=== PATIENT | male | born 1995 | race Caucasian/White ===

== ENCOUNTER 2019-04-24 18:13 | Inpatient (IN) | payer BC ==
[2019-04-24] MEDS ORDERED: SODIUM CHLORIDE 0.9% 1,000 ML IV ONE (19:09)
[2019-04-24 19:47] LABS: Appearance,Urine Clear (Clear); Bilirubin,Urine Negative (Negative); Blood,Urine Negative (Negative); Color,Urine Light Yellow; Glucose,Urine (UA) Negative (Negative); Ketones,Urine Negative (Negative); Leukocyte Esterase,Urine Negative (Negative); Nitrite,Urine Negative (Negative); PH, Urine 7.5 (5.0-8.0); Protein,Urine Negative (Negative); Specific Gravity,Urine 1.006 (1.001-1.035); Urobilinogen,Urine <2.0 mg/dL (<2.0)
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
[2019-04-24 19:56] LABS: ALT 24 U/L (21-72); AST 22 U/L (17-59); African American GFR (CKD) >90 (>60 ml/min/1.73 sqM); Albumin 4.6 g/dL (3.5-5.0); Alkaline Phosphatase 63 U/L (38-126); Anion Gap 9 mmol/L; Blood Urea Nitrogen 14 mg/dL (9-20); Calcium 9.7 mg/dL (8.4-10.2); Carbon Dioxide 24 mmol/L (22-30); Chloride 107 mmol/L (98-107); Glucose 89 mg/dL (74-99); Sodium 140 mmol/L (137-145); Total Protein 7.3 g/dL (6.3-8.2)
[2019-04-24 19:58] LABS: Basophils % (A) 1 %; Eosinophils # (A) 0.2 k/uL (0-0.7); Eosinophils % (A) 3 %; HCT 42.5 % (39.0-53.0); HGB 14.8 gm/dL (13.0-17.5); Lymphocytes # (A) 1.8 k/uL (1.0-4.8); Lymphocytes % (A) 26 %; MCH 28.6 pg (25.0-35.0); MCHC 34.9 g/dL (31.0-37.0); MCV 82.1 fL (80.0-100.0); Mean Platelet Volume 7.1; Monocytes # (A) 0.5 k/uL (0-1.0); Monocytes % (A) 6 %; Neutrophils # (A) 4.3 k/uL (1.3-7.7); Neutrophils % (A) 61 %; Platelet Count 239 k/uL (150-450); RBC 5.17 m/uL (4.30-5.90); RDW 12.4 % (11.5-15.5); WBC 7.1 k/uL (3.8-10.6)
[2019-04-24 20:01] LABS: Amphetamine Screen,Urine Not Detected (NotDetected); Barbiturate Screen,Urine Not Detected (NotDetected); Benzodiazepines Screen,Urine Not Detected (NotDetected); Cocaine Screen,Urine Not Detected (NotDetected); Methadone Screen, Urine Not Detected (NotDetected); Opiate Screen,Urine Not Detected (NotDetected); Oxycodone Screen, Urine Not Detected (NotDetected); Phencyclidine Screen,Urine Not Detected (NotDetected); Tricyclic Antidepressant,Urine Not Detected (NotDetected); Urn Cannabinoid Scrn Not Detected (NotDetected)
--- NOTE | 2019-04-24 20:01 | CT ---
EXAMINATION TYPE: CT brain wo con DATE OF EXAM: 04/24/2019 COMPARISON: None HISTORY: AMS. Family reporting bizarre behavior, hasn't slept or eaten in 2 days. PT suffered traumat ic brain injury several years ago. Family states he has never had AMS CT DLP: 1123.4 mGycm. Automated Exposure Control for Dose Reduction was Utilized. TECHNIQUE: CT scan of the head is performed without contrast. FINDINGS: Ventricles have normal size. There is no mass effect nor midline shift. There is no sign of intracranial hemorrhage. The calvarium is intact. There is mild cerebral atrophy. IMPRESSION: There is mild cerebral atrophy for the patient's young age. No acute intracranial abnormality.
--- NOTE | 2019-04-24 20:02 | XR ---
EXAMINATION TYPE: XR chest 2V DATE OF EXAM: 04/24/2019 COMPARISON: NONE HISTORY: Altered mental status TECHNIQUE: Frontal and lateral views of the chest are obtained. FINDINGS: Heart and mediastinum are normal. Lungs are clear. Diaphragm is normal. Bony thorax appear s normal. IMPRESSION: Normal chest.
[2019-04-24] MEDS ORDERED: HALOPERIDOL 1 MG TAB PO STA (22:46)
[2019-04-24] MEDS ORDERED: LORazepam 1 MG TAB PO STA (22:46)
[2019-04-24] MEDS ORDERED: ACETAMINOPHEN TAB 325 MG TAB PO PRN (23:59)
[2019-04-24] MEDS ORDERED: MAG HYDROX/AL HYDROX/SIMETH 30 ML CUP PO PRN (23:59)
[2019-04-24] MEDS ORDERED: MAGNESIUM HYDROXIDE 2,400 MG/10 ML CUP PO PRN (23:59)
--- NOTE | 2019-04-25 11:43 | P.CONS ---
History of Present Illness - Reason for Consult Consult date: 04/25/19 - History of Present Illness The patient is a 23 yo M with a PMH of traumatic brain injury (5 years ago) and psychosis presented to the ED for flight of ideas and behaving strangely. The patient's family had brought him in. The patient was seen in the MHU. He noted feeling well though was continuing to have tangentiality and flight of ideas during the interview. He noted no other past medical history and denied any acti ve complaints. Denied chest pain, fever, chills, cough, nausea, vomiting, abdominal pain. Review of Systems Pertinent positives and negatives as discussed in HPI, a complete review of systems was performed and all other systems are negative. Past Medical History Additional Past Medical History / Comment(s): Traumatic brain injury. Trach. History of Any Multi-Drug Resistant Organisms: None Reported Past Surgical History: No Surgical Hx Reported Past Psychological History: Anxiety, Depression, PTSD Smoking Status: Current every day smoker Past Alcohol Use History: None Reported Past Drug Use History: None Reported Medications and Allergies Home Medications Medication Instructions Recorded Confirmed Type No Known Home Medications 04/24/19 04/24/19 History Allergies Allergy/AdvReac Type Severity Reaction Status Date / Time banana AdvReac Nausea & Verified 04/25/19 01:46 Vomiting grape AdvReac Nausea & Verified 04/25/19 01:46 Vomiting tomato AdvReac Nausea & Verified 04/25/19 01:46 Vomiting Physical Exam Vitals: Vital Signs Temp Pulse Pulse Resp BP BP Pulse Ox 04/25/19 00:03 97.4 F L 61 18 112/90 100 04/24/19 23:56 98.0 F 58 L 18 129/88 100 04/24/19 18:23 98.6 F 78 20 127/84 99 Intake and Output 04/24/19 04/25/19 04/25/19 22:59 06:59 14:59 Other: Weight 74.843 kg General: non toxic, no distress, appears at stated age, normal weight Derm: no unusual rashes/lesions no unusual ecchymoses, warm, dry Head: atraumatic, normocephalic, symmetric Eyes: EOMI, no lid lag, anicteric sclera, pupils equal round reactive to light ENT: Nose and ears atraumatic, no thrush, no pharyngeal erythema Neck: No thyromegaly, no cervical lymphadenopathy, trachea midline, supple Mouth: no lip lesion, mucus membranes moist Cardiovascular: S1S2 reg, no murmur, positive posterior tibial pulse bilateral, no edema, capillary refill less than 2 seconds Lungs: CTA bilateral, no rhonchi, no rales , no accessory muscle use Abdominal: soft, nontender to palpation, no guarding, no appreciable organomegaly, normal bowel sounds Ext: no gross muscle atrophy, muscle strength 5 out of 5 in all 4 extremities grossly, no contractures, Neuro: CN II-XI grossly intact, light touch intact all 4 extremities, finger to nose within normal limits, Psych: Alert, oriented, flat of ideas, disorganized thought process Results CBC & Chem 7: 04/24/19 19:34 04/24/19 19:34 Assessment and Plan Plan: Psychosis -as per psychiatry Tobacco abuse -Nicotine patch prn Thank you for allowing us to participate in the care of this patient. We will follow peripherally. Do not hesitate to contact us with questions. Someone can be reached from the [facility] hospitalist group at all hours of the day at [phone].
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
[2019-04-25] MEDS ORDERED: ZIPRASIDONE 20 MG VIAL IM ONE (19:55)
[2019-04-25] MEDS ORDERED: WATER FOR INJECTION, STERILE 0 ML IV ONE (19:55)
[2019-04-25] MEDS: LORazepam 1 MG TAB PO PRN (20:01)
[2019-04-25] MEDS: HALOPERIDOL 1 MG TAB PO PRN (20:11)
[2019-04-25] MEDS: PALIPERIDONE 3 MG TAB.ER.24 PO SCH ×2 (20:12→20:46)
[2019-04-25] MEDS: HALOPERIDOL LACTATE 5 MG/ML 1 ML VIAL IM PRN (20:53)
[2019-04-25] MEDS: LORazepam 2 MG/ML INJ IM PRN (20:53)
[2019-04-26 09:46] LABS: ALT 26 U/L (21-72); AST 23 U/L (17-59); African American GFR (CKD) >90 (>60 ml/min/1.73 sqM); Albumin 4.5 g/dL (3.5-5.0); Alkaline Phosphatase 61 U/L (38-126); Anion Gap 11 mmol/L; Bilirubin, Delta 0.1 mg/dL (0.0-0.2); Bilirubin,Unconjugated 1.1 mg/dL (0.0-1.1); Blood Urea Nitrogen 17 mg/dL (9-20); Calcium 9.7 mg/dL (8.4-10.2); Carbon Dioxide 23 mmol/L (22-30); Chloride 108 mmol/L (98-107); Cholesterol 94 mg/dL (<200); Glucose 89 mg/dL (74-99); HDL Cholesterol 43 mg/dL (40-60); LDL Cholesterol,Calculated 43 mg/dL (0-99); Potassium 4.5 mmol/L (3.5-5.1); Sodium 142 mmol/L (137-145); Total Bilirubin 1.2 mg/dL (0.2-1.3); Total Protein 7.3 g/dL (6.3-8.2); Triglycerides 41 mg/dL (<150)
[2019-04-26] MEDS: NICOTINE 14MG/24HR PATCH TRANSDERM SCH (09:46)
--- NOTE | 2019-04-26 13:38 | P.PN ---
Progress Note - Text Progress Note Date: 04/26/19 Interval history: Patient is seen in cross coverage today. He reports that he didn't take the Invega last night, he did receive an injection of medicine. He does describe that he feels something is missing. Describes that his thoughts could be clear. He also describes having some violent mood swings. Mental status exam: He is alert and cooperative with the interview. He is not showing any agitation. His thought processes seem to be showing some disorganization. He describes that his thoughts could be clearer. He denies any hallucinations. He does not verbalize any thoughts of harm to self or others. Regarding mood he describes some violent mood swings. Plan: Patient is encouraged regarding initiating the intake as prescribed. We will monitor his medication compliance. We will monitor for any medication side effects and his ongoing response to treatment.
[2019-04-26] MEDS: LORazepam 1 MG TAB PO PRN (13:44)
[2019-04-26] MEDS: HALOPERIDOL 1 MG TAB PO PRN (14:27)
[2019-04-26 18:46] LABS: Folate, Serum 19.6 ng/mL
[2019-04-26 20:27] LABS: Hemoglobin A1C 4.9 % (4.0-6.0)
[2019-04-26] MEDS: PALIPERIDONE 3 MG TAB.ER.24 PO SCH (21:05)
[2019-04-26] MEDS: HALOPERIDOL LACTATE 5 MG/ML 1 ML VIAL IM PRN (22:00)
[2019-04-26] MEDS: LORazepam 2 MG/ML INJ IM PRN (22:00)
[2019-04-27] MEDS: NICOTINE 14MG/24HR PATCH TRANSDERM SCH (09:12)
[2019-04-27] MEDS: LORazepam 1 MG TAB PO PRN (11:05)
[2019-04-27] MEDS: HALOPERIDOL 1 MG TAB PO PRN (11:05)
--- NOTE | 2019-04-27 12:54 | P.PN ---
Progress Note - Text Progress Note Date: 04/27/19 Interval history: Patient seen in [facility] again today. He states he did take the invega last night. He seems to relay that he didn't sleep well last night then does talk about hearing some voices in his sleep. He does not seem to verbalize any adverse psychotropic medication side effects. He describes feeling full and makes reference to having eaten. Mental status exam: He is alert and cooperative overall. He does not show any agitation. He seems to deny any current him auditory hallucinations. He does not verbalize any thoughts of harm to self or others. He does have some disorganization in his thoughts. Affect is restricted Plan: Patient will be maintained on current psychotropic medication. Continue to monitor for any side effects, continuing to encourage medication compliance and monitor his ongoing response to treatment.
[2019-04-27] MEDS: PALIPERIDONE 3 MG TAB.ER.24 PO SCH (21:12)
[2019-04-27] MEDS: HALOPERIDOL LACTATE 5 MG/ML 1 ML VIAL IM PRN (21:31)
[2019-04-27] MEDS: LORazepam 2 MG/ML INJ IM PRN (21:31)
[2019-04-28] MEDS: LORazepam 2 MG/ML INJ IM PRN (04:54)
[2019-04-28] MEDS: HALOPERIDOL LACTATE 5 MG/ML 1 ML VIAL IM PRN (04:54)
[2019-04-28] MEDS: NICOTINE 14MG/24HR PATCH TRANSDERM SCH (09:21)
[2019-04-28] MEDS ORDERED: HALOPERIDOL 5 MG TAB PO PRN (11:15)
[2019-04-28] MEDS ORDERED: HALOPERIDOL LACTATE 5 MG/ML 1 ML VIAL IM PRN (11:15)
[2019-04-28] MEDS ORDERED: LORazepam 1 MG TAB PO PRN (11:18)
[2019-04-28] MEDS ORDERED: LORazepam 2 MG/ML INJ IM PRN (11:18)
--- NOTE | 2019-04-28 11:24 | P.PN ---
Progress Note - Text Progress Note Date: 04/28/19 Interval History: Patient was seen at the nurse's desk and was agreeable to speak to press writer in the office. Patient was difficult to redirect at times and appeared to have poor hygiene and grooming. Patient continues to be bizarre and was tangential and having loose associations in his thought content/process. Patient continues to have poor insight and judgment and asked about when he can leave the hospital. He states his mood is "okay" and denies any depressive symptoms at this time. He stated that he had a good night last night however patient did receive PRN IM medications for bizarre behavior and hitting doors according to staff. Patient admitted a fair energy and denied going to groups. Patient continues to have thought blocking. At this time patient denies any suicidal or homical ideations, intent or plan. Patient denies any auditory, visual hallucinations. Continues to have multiple loosely formed delusions. Patient denies any side effects from the medications and has been compliant with meds. Mental Status Exam: General Appearance: Patient appears to be stated age is alert, and attempts to cooperate. Patient continues to have a bizarre appearance and appears to be confused. Poor hygiene and poor grooming. Behavior: Patient is calmly seated without any agitated behavior. Speech: Patient's speech is fluent and nonpressured. Soft tone Mood/Affect: Patient reports their mood is "okay", affect is congruent and blunted Suicidality/Homicidality: Patient denies having any suicidal or homicidal ideation intent or plan. Perceptions: Patient admits to having auditory hallucinations denies any visual hallucinations. Though content/process: Multiple loosely formed delusions. Does not endorse any paranoia at this time. Patient is illogical and tangential with loose associations. Memory and concentration: AOX3, grossly intact for the purposes of this session. Judgment and insight: poor Assessment Psychosis unspecified History of traumatic brain injury Nicotine dependence Plan: -Patient continues to meet criteria for inpatient psychiatric admission for symptom stabilization and safety. Patient has signed adult voluntary form and medication consent and was placed in patient's chart. -Medications: Will increase Invega to 6 mg nightly for psychosis. Plan to titrate up as needed and evaluate need for possible long-acting injection. -When necessary Haldol and Ativan for agitation/aggression. -NRT - nicotine patch -SW on board for discharge planning.
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
[2019-04-28] MEDS ORDERED: BENZTROPINE 2 MG/2 ML AMP IM STA (20:51)
[2019-04-28] MEDS ORDERED: PALIPERIDONE 6 MG TAB.ER.24 PO SCH (21:00)
[2019-04-29] MEDS: NICOTINE POLACRILEX 2 MG GUM BUCCAL PRN ×4 (05:49→18:43)
[2019-04-29] MEDS: PALIPERIDONE 3 MG TAB.ER.24 PO SCH ×2 (10:06→21:11)
--- NOTE | 2019-04-29 10:32 | P.PN ---
Progress Note - Text Progress Note Date: 04/29/19 Interval History: Patient was seen at the nurse's desk and was agreeable to speak to chart writer in the office. Patient appeared slightly more lucid/less confused today and was attempting to answer questions appropriately however patient's answers were tangential and sometimes illogical. Patient appeared to have mildly improved hygiene and grooming. Patient continues to be bizarre and was tangential and having loose associations in his thought content/process. Patient continues to have poor insight/judgment. He states his mood is "alright" and denies any depressive symptoms at this time. When asked about his medications and patient Referring to His Nicorette Gum and Talking about the Minty Taste to It. However patient was directable and agreeable to continue taking the medication. When patient was asked abotu his night last night, he did not recall what happened and claims that he didnt sleep. Patient admitted a fair energy and denied going to groups. Patient continues to have thought blocking. At this time patient denies any suicidal or homical ideations, intent or plan. Patient denies any auditory, visual hallucinations. Continues to have multiple loosely formed delusions. Patient denies any side effects from the medications and has been compliant with meds. As per notes overnight, patient received 2 mg of IM Cogentin for what was reported as "slurred speech and confusion" and patient improved after that. Invega was held last night. Mental Status Exam: General Appearance: Patient appears to be stated age is alert, and attempts to cooperate. Patient continues to have a bizarre appearance. improved hygiene and grooming. Behavior: Patient is calmly seated without any agitated behavior. Speech: Patient's speech is fluent and nonpressured. Soft tone Mood/Affect: Patient reports their mood is "okay", affect is congruent and blunted Suicidality/Homicidality: Patient denies having any suicidal or homicidal ideation intent or plan. Perceptions: Patient admits to having auditory hallucinations denies any visual hallucinations. Though content/process: Multiple loosely formed delusions. Does not endorse any paranoia at this time. Patient is illogical and tangential with loose associations, improving mildly. Memory and concentration: AOX3, grossly intact for the purposes of this session. Judgment and insight: poor Assessment Psychosis unspecified History of traumatic brain injury Nicotine dependence Plan: -Patient continues to meet criteria for inpatient psychiatric admission for symptom stabilization and safety. Patient has signed adult voluntary form and medication consent and was placed in patient's chart. -Medications: Will switch Invega to 3 mg BID for psychosis. Plan to titrate up as needed and evaluate need for possible long-acting injection. May need to switch to Haldol liquid -EEG scheduled for today for patient's ongoing confusion. Will order CPK to rule out possible neuroleptic malignant syndrome as patient appeared to be "stiff" yesterday by staff. -Will attempt to call patient's mother today Malorie at [phone] for additional collateral. -Brain CT scan done prior to admission on 04/24/2019 showed mild cerebral atrophy with no acute changes. -UDS on admission was negative. -When necessary Haldol and Ativan for agitation/aggression. -NRT - nicotine patch -SW on board for discharge planning.
--- NOTE | 2019-04-29 22:58 | EEG ---
ELECTROENCEPHALOGRAM REPORT DATE OF SERVICE: 04/29/2019. ELECTROENCEPHALOGRAM (EEG) REPORT: TECHNIQUE: A routine 18 channel EEG was performed with video using the 10/20 international electrode placement system. HISTORY: Traumatic brain injury 5 years ago. Other medical history includes psychosis in the last few days. CURRENT MEDICATIONS: Invega, Ativan, Haldol and Maalox. STUDY DURATION: 24 minutes. FINDINGS: BACKGROUND: The background activity consists of 9-10 hertz rhythmic waveforms symmetric through both posterior quadrants. ACTIVATION: Hyperventilation: Not performed. Photic stimulation: Symmetric driving seen. Sleep: Stages I and II sleep noted. ABNORMALITIES: None. IMPRESSION: Normal EEG. No epileptiform activity was present. No seizures were recorded. MMODL / IJN: [id number] /
[2019-04-30] MEDS: PALIPERIDONE 3 MG TAB.ER.24 PO SCH ×2 (08:58→21:24)
[2019-04-30] MEDS: NICOTINE POLACRILEX 2 MG GUM BUCCAL PRN ×4 (09:00→21:25)
--- NOTE | 2019-04-30 12:37 | P.PN ---
Progress Note - Text Progress Note Date: 04/30/19 Interval History: Patient was seen taking part in group and was agreeable to speak to sql report writer in the office. Patient appeared to be more directable and cooperative today. Patient appeared more lucid/less confused today and answered questions more appropriately. Patient continues to be tangential/circumstantial in his thought process. Patient appeared to have mildly improved hygiene and grooming. He spoke about the woman that he was trying to meet online and how their relationship started on "[employer]". He states that they were texting thing back and forth and he decided to end it momentarily however had second thoughts of wanting to make it work but claims that the relationship did not go forward. Patient claims that his mother does not know him well although he does trust her. Patient continues to have superficial insight into his medications however was directable and agreeable to continue taking the Invega. Patient stated that in the future and she does not want to take any medications. states his mood is "alright" and denies any depressive symptoms at this time. Patient stated that he slept better last night. Patient admitted a fair energy and denied going to groups. At this time patient denies any suicidal or homical ideations, intent or plan. Patient denies any auditory, visual hallucinations. Patient denies any side effects from the medications and has been compliant with meds. Mental Status Exam: General Appearance: Patient appears to be stated age is alert, and attempts to cooperate. Less bizarre and more directable today. Improved hygiene and grooming. Behavior: Patient is calmly seated without any agitated behavior. Speech: Patient's speech is fluent and nonpressured. Soft tone Mood/Affect: Patient reports their mood is "fine", affect is congruent Suicidality/Homicidality: Patient denies having any suicidal or homicidal ideat ion intent or plan. Perceptions: Patient admits to having auditory hallucinations denies any visual hallucinations. Though content/process: Tangential/circumstantial however is improving mildly. Patient is more logical today. Memory and concentration: AOX3, grossly intact for the purposes of this session. Judgment and insight: poor, improving mildly Assessment Psychosis unspecified History of traumatic brain injury Nicotine dependence Plan: -Patient continues to meet criteria for inpatient psychiatric admission for symptom stabilization and safety. Patient has signed adult voluntary form and medication consent and was placed in patient's chart. -Medications: Will continue with Invega to 3 mg BID for psychosis. Plan to titrate up as needed. -EEG performed on 04/29/2019 which proved to be a normal study with no epileptiform changes or seizures noted. CPK was noted to be elevated, vital signs are stable and patient is less confused at this time. We'll continue to monitor. -Brain CT scan done prior to admission on 04/24/2019 showed mild cerebral atrophy with no acute changes. -UDS on admission was negative. Patient adamantly denies using any recreational drugs -When necessary Haldol and Ativan for agitation/aggression. -NRT - nicotine patch -SW on board for discharge planning. patch worker to ask mother to visit patient today. Possible discharge in 1-2 days.
[2019-05-01] MEDS: NICOTINE POLACRILEX 2 MG GUM BUCCAL PRN ×4 (09:14→19:35)
[2019-05-01] MEDS: PALIPERIDONE 3 MG TAB.ER.24 PO SCH ×2 (09:14→20:16)
[2019-05-01 09:25] VITALS: BMI 23.6
--- NOTE | 2019-05-01 09:34 | P.PN ---
Progress Note - Text Progress Note Date: 05/01/19 Interval History: Patient was seen this morning after taking his medications and was agreeable to speak to promotion writer in the office. Patient appeared to be more directable and cooperative today however continues to have a constricted affect. Patient appeared more lucid and less confused today and answered questions appropriately. Patient continues to be tangential/circumstantial in his thought process. Patient spoke about feeling much better today and spoke about seeing his parents yesterday during the meeting/visitation and states that it went well. Patient spoke about his mother wanting him to be on the long-acting injection however patient is still undecided at this time whether he wants it or not. Patient claims that he has been going to groups and attending to participate as best as he can. He states his mood is "alright" and denies any depressive symptoms at this time. Patient stated that he slept better last night. Patient admitted a fair energy. At this time patient denies any suicidal or homical ideations, intent or plan. Patient denies any auditory, visual hallucinations. Patient denies any side effects from the medications and has been compliant with meds. Mental Status Exam: General Appearance: Patient appears to be stated age is alert, and attempts to c ooperate. More directable today. Improved hygiene and grooming. Behavior: Patient is calmly seated without any agitated behavior. Speech: Patient's speech is fluent and nonpressured. Soft tone Mood/Affect: Patient reports their mood is "ok", affect is congruent Suicidality/Homicidality: Patient denies having any suicidal or homicidal ideation intent or plan. Perceptions: Patient admits to having auditory hallucinations denies any visual hallucinations. Though content/process: Tangential/circumstantial however is improving mildly. Patient is more logical today. Memory and concentration: AOX3, grossly intact for the purposes of this session. Judgment and insight: Fair, improving mildly Assessment Psychosis unspecified History of traumatic brain injury Nicotine dependence Plan: -Patient continues to meet criteria for inpatient psychiatric admission for symptom stabilization and safety. Patient has signed adult voluntary form and medication consent and was placed in patient's chart. -Medications: Will continue with Invega to 3 mg BID for psychosis. Will encourage patient to be placed on long-acting injection to ensure compliance. -EEG performed on 04/29/2019 which proved to be a normal study with no epileptiform changes or seizures noted. CPK was noted to be elevated, vital signs are stable and patient is less confused at this time. We'll continue to monitor. -Brain CT scan prior to admission on 04/24/2019 showed mild cerebral atrophy with no acute changes. -UDS on admission was negative. Patient adamantly denies using any recreational drugs -When necessary Haldol and Ativan for agitation/aggression. -NRT - nicotine patch -SW on board for discharge planning. We'll speak with mother today about patient's visitation yesterday and plans for discharge and long-acting medication option.
[2019-05-02 06:42] VITALS: BP 97/50; PULSE 61; RESP 14; TEMP 97.7
[2019-05-02] MEDS: PALIPERIDONE 3 MG TAB.ER.24 PO SCH (09:14)
--- NOTE | 2019-05-02 09:42 | P.DS ---
Providers Date of admission: 04/24/19 22:54 Expected date of discharge: 05/02/19 Attending physician: Bigg Polanco MD Consults: 04/24/19 23:59 Consult Physician Routine Consulting Provider: Osiel Rouse Consult Reason/Comments: H & P and medical care Do you want consulting provider notified?: Yes 04/25/19 12:47 Consult Physician Routine Consulting Provider: Shanti Chance Consult Reason/Comments: ? seizure Do you want consulting provider notified?: Yes Primary care physician: Stated None - Discharge Diagnosis(es) (1) Brief psychotic disorder Current Visit: Yes Status: Acute Priority: High (2) History of traumatic brain injury Current Visit: Yes Status: Acute Priority: Medium (3) Nicotine dependence Current Visit: Yes Status: Acute Priority: Low Hospital Course: Admission HPI: Patient is a 23-year-old male who has a history of psychotic disorder and traumatic brain injury is currently single lives alone in an apartment and works full-time at a factory. Patient presented to the hospital on petition by his mother who claim the patient was having racing thoughts, rapid speech, and not taking care of himself including eating and not sleeping. Mother also commented that patient was religiously preoccupied. As per ER note claims that patient is not on any medications and behavioral changes have been ongoing for approximately 3 days now. Patient was agreeable to be seen by telegraphic typewriter installer in the office and was noted to be tangential, illogical with loose associations. Patient was also noted attending to be responding to internal stimuli looking around the room. When patient was asked about why he is in the hospital, patient had very poor insight and stated that she was working in his factory and began speaking about the details of the machines and different cars and went off on a tangent. Patient was difficult to redirect in conversation and was inappropriate with his answers. Patient did state that his tire service supervisor sent him home as he was "acting crazy" and patient responded by saying that she was doing to get a job at work didn't understand why he was sent home. Patient spoke about many different topics including wanting to work for the hospital and stating that he did not want to be in the hospital. Patient also spoke about someone who she met on [employer] and how he "went to be together". Patient was also religiously preoccupied during conversation. Patient claimed that he does hear auditory hallucinations and described him as "soft voice through snapchat". Patient denied any visual hallucinations at this time. Patient admitted to having poor sleep stating that he stayed up all night reading the book of bear bauer in the Bible. Patient does not endorse any paranoia at this time has multiple loosely formed delusions and denies any depressive symptoms at this time. Patient denies any suicidal or homicidal ideations intent or plan. Patient admits to using cigarettes daily and denies any other illicit drug use. Patient's UDS on admission was negative. Hospital course: Upon admission to the unit patient was initially psychotic and bizarre and responding to internal stimuli. Patient was however directable and agreeable to commence treatment. Patient was initially aggressive at times and disorganiz ed/bizarre and required PRN IM medications for agitation. Patient was compliant with the medications throughout hospital course and gradually improved. Patient did have one episode where he had slurring of speech and acute confusion and muscle tightness and patient was given IM Cogentin which improved his symptoms. Patient was started on Invega and titrated up to a dose of 6 mg daily for psychosis. Patient was offered the long-acting injection of Invega Sustenna however patient declined. Patient spoke of his stressors and engaged in therapy both group and individual. Patient was also seen by medical team for history and physical exam. Patient had a head CT scan done on admission which showed mild cerebral atrophy for patient's age. Patient also received an EEG which showed no epileptiform changes or seizures. Patient's UDS was negative on admission and patient denied using any other hallucinogens or recreational drugs. Patient had creatinine kinase drawn to rule out NMS and level was 1055. Patient had a negative Treponema pallidum test. Neurological consultation was requested to rule out possible seizure. Throughout the course of the hospitalization patient gradually improved with regards to psychosis/behaviors, mood, sleep and became future oriented with improved insight and judgment. On the day of discharge patient denied any suicidal or homicidal ideations intent or plan denied any auditory or visual hallucinations. Patient endorsed wanting to live for his health and his independence. The patient denied any access to guns or weapons. Patient denied any paranoia and did not endorse any delusions. Patient does not have a significant history of substance abuse however was counseled on abstaining from all substances including alcohol and marijuana. Patient was also counseled on the medications and need for regular compliance and was encouraged to follow-up with their outpatient appointment for mental health and also for primary care. Prior to discharge a family meeting will be arranged by social worker clinical to answer any questions and ensure safety upon discharge. Mental status exam: General Appearance: Patient appears to be stated age is alert, pleasant, and cooperative. Patient is in no acute distress and has fair hygiene and grooming Behavior: Patient is calmly seated without any agitated behavior. Speech: Patient's speech is fluent and nonpressured. Mood/Affect: Patient reports their mood is "better", affect is congruent and constricted Suicidality/Homicidality: Patient denies having any suicidal or homicidal ideation intent or plan. Perceptions: Patient denies any auditory or visual hallucinations. Though content/process: There is no evidence of any delusional thought content and thought process is tangential/circumstantial. Memory and concentration: AOX3, grossly intact for the purposes of this session. Can spell "WORLD" backwards correctly. Judgment and insight: fair, improved Impression: Brief psychotic disorder History of traumatic brain injury Nicotine dependence Plan: -Continue with discharge today as patient has improved and stabilized psychiatrically and is not currently an imminent threat to himself and/or o thers. -Continue medications: Continue with Invega by mouth 6 mg nightly for psychosis. Patient was offered long-acting injection option however he declined at this time. -Patient was counseled on the need for medication compliance and appropriate follow-up at mental health and also primary care for medical issues. Patient verbalized understanding and agreed. -Social work to arrange for and conduct family meeting to ensure safety upon discharge and answer any questions/concerns. Social work also to arrange for patients follow up appointments with [facility] for counseling [facility] for [facility] care along with follow up with primary care provider. -Patient counseled on abstaining from recreational drugs and marijuana and alcohol. Was informed/educated on the adverse effects on their physical and mental health. Patient verbally agreed and understood -Patient was instructed to return to the hospital or seek immediate medical care if their psychiatric or medical systems do worsen or reoccur. -Warehouse Administrator spoke with mother over the phone to address any concerns and answer questions about patient's treatment. Mother is on board with helping to remind patient to take his medications and will go with him to follow up appointments. Allergies Allergy/AdvReac Type Severity Reaction Status Date / Time banana AdvReac Nausea & Verified 04/25/19 01:46 Vomiting grape AdvReac Nausea & Verified 04/25/19 01:46 Vomiting tomato AdvReac Nausea & Verified 04/25/19 01:46 Vomiting Laboratory Results WBC 7.1 k/uL (3.8-10.6) 04/24/19 19:34 RBC 5.17 m/uL (4.30-5.90) 04/24/19 19:34 Hgb 14.8 gm/dL (13.0-17.5) 04/24/19 19:34 Hct 42.5 % (39.0-53.0) 04/24/19 19:34 MCV 82.1 fL (80.0-100.0) 04/24/19 19:34 MCH 28.6 pg (25.0-35.0) 04/24/19 19:34 MCHC 34.9 g/dL (31.0-37.0) 04/24/19 19:34 RDW 12.4 % (11.5-15.5) 04/24/19 19:34 Plt Count 239 k/uL (150-450) 04/24/19 19:34 Neutrophils % 61 % 04/24/19 19:34 Lymphocytes % 26 % 04/24/19 19:34 Monocytes % 6 % 04/24/19 19:34 Eosinophils % 3 % 04/24/19 19:34 Basophils % 1 % 04/24/19 19:34 Neutrophils # 4.3 k/uL (1.3-7.7) 04/24/19 19:34 Lymphocytes # 1.8 k/uL (1.0-4.8) 04/24/19 19:34 Monocytes # 0.5 k/uL (0-1.0) 04/24/19 19:34 Eosinophils # 0.2 k/uL (0-0.7) 04/24/19 19:34 Basophils # 0.0 k/uL (0-0.2) 04/24/19 19:34 Sodium 142 mmol/L (137-145) 04/26/19 08:59 Potassium 4.5 mmol/L (3.5-5.1) 04/26/19 08:59 Chloride 108 mmol/L (98-107) H 04/26/19 08:59 Carbon Dioxide 23 mmol/L (22-30) 04/26/19 08:59 Anion Gap 11 mmol/L 04/26/19 08:59 BUN 17 mg/dL (9-20) 04/26/19 08:59 Creatinine 1.01 mg/dL (0.66-1.25) 04/26/19 08:59 Est GFR (CKD-EPI)AfAm >90 (>60 ml/min/1.73 sqM) 04/26/19 08:59 Est GFR (CKD-EPI)NonAf >90 (>60 ml/min/1.73 sqM) 04/26/19 08:59 Glucose 89 mg/dL (74-99) 04/26/19 08:[address] Glu mg/dL 94 04/26/19 08:59 Hemoglobin A1c 4.9 % (4.0-6.0) 04/26/19 08:59 Calcium 9.7 mg/dL (8.4-10.2) 04/26/19 08:59 Total Bilirubin 1.2 mg/dL (0.2-1.3) 04/26/19 08:59 Conjugated Bilirubin 0.0 mg/dL (0.0-0.3) 04/26/19 08:59 Unconjugated Bilirubin 1.1 mg/dL (0.0-1.1) 04/26/19 08:59 Delta Bilirubin 0.1 mg/dL (0.0-0.2) 04/26/19 08:59 AST 23 U/L (17-59) 04/26/19 08:59 ALT 26 U/L (21-72) 04/26/19 08:59 Alkaline Phosphatase 61 U/L (38-126) 04/26/19 08:59 Ammonia 16 umol/L (<30) 04/24/19 19:34 Creatine Kinase 1055 U/L (55-170) H* 04/29/19 10:42 Total Protein 7.3 g/dL (6.3-8.2) 04/26/19 08:59 Albumin 4.5 g/dL (3.5-5.0) 04/26/19 08:59 Triglycerides 41 mg/dL (<150) 04/26/19 08:59 Cholesterol 94 mg/dL (<200) 04/26/19 08:59 LDL Cholesterol, Calc 43 mg/dL (0-99) 04/26/19 08:59 HDL Cholesterol 43 mg/dL (40-60) 04/26/19 08:59 Vitamin B12 712.0 pg/mL (200.0-944.0) 04/26/19 08:59 Folate 19.6 ng/mL 04/26/19 08:59 TSH 1.700 mIU/L (0.465-4.680) 04/26/19 08:59 Urine Color Light Yellow 04/24/19 19:39 Urine Appearance Clear (Clear) 04/24/19 19:39 Urine pH 7.5 (5.0-8.0) 04/24/19 19:39 Ur Specific [place] 1.006 (1.001-1.035) 04/24/19 19:39 Urine Protein Negative (Negative) 04/24/19 19:39 Urine Glucose (UA) Negative (Negative) 04/24/19 19:39 Urine Ketones Negative (Negative) 04/24/19 19:39 Urine Blood Negative (Negative) 04/24/19 19:39 Urine Nitrite Negative (Negative) 04/24/19 19:39 Urine Bilirubin Negative (Negative) 04/24/19 19:39 Urine Urobilinogen <2.0 mg/dL (<2.0) 04/24/19 19:39 Ur Leukocyte Esterase Negative (Negative) 04/24/19 19:39 Urine Opiates Screen Not Detected (NotDetected) 04/24/19 19:39 Ur Oxycodone Screen Not Detected (NotDetected) 04/24/19 19:39 Urine Methadone Screen Not Detected (NotDetected) 04/24/19 19:39 Ur Propoxyphene Screen Not Detected (NotDetected) 04/24/19 19:39 Ur Barbiturates Screen Not Detected (NotDetected) 04/24/19 19:39 U Tricyclic Antidepress Not Detected (NotDetected) 04/24/19 19:39 Ur Phencyclidine Scrn Not Detected (NotDetected) 04/24/19 19:39 Ur Amphetamines Screen Not Detected (NotDetected) 04/24/19 19:39 U Methamphetamines Scrn Not Detected (NotDetected) 04/24/19 19:39 U Benzodiazepines Scrn Not Detected (NotDetected) 04/24/19 19:39 Urine Cocaine Screen Not Detected (NotDetected) 04/24/19 19:39 U Marijuana (THC) Screen Not Detected (NotDetected) 04/24/19 19:39 Treponema pallidum Ab Non-Reactive (Non-Reactive) 04/26/19 08:59 Vital Signs Temp 97.7 F 05/02/19 06:26 Pulse 61 05/02/19 06:26 Resp 14 05/02/19 06:26 BP 97/50 05/02/19 06:26 Pulse Ox 98 04/28/19 21:25 Intake & Output 05/01/19 05/02/19 05/02/19 18:59 06:59 18:59 Weight 74.843 kg Patient Condition at Discharge: Stable Plan - Discharge Summary Discharge Rx Participant: No New Discharge Prescriptions: New Paliperidone [Invega] 6 mg PO HS 28 Days tab.er.24 Nicotine Polacrilex [Nicorette] 2 mg BUCCAL Q4HR PRN 14 Days gum PRN Reason: Nicotine Cravings Discharge Medication List Nicotine Polacrilex [Nicorette] 2 mg BUCCAL Q4HR PRN 14 Days gum 05/02/19 [Rx] Paliperidone [Invega] 6 mg PO HS 28 Days tab.er.24 05/02/19 [Rx] Follow up Appointment(s)/Referral(s): counseling, Center [Other] - 05/06/19 2:00 pm (Lucrecia Please arrive 30 minutes prior to appointment for paperwork ) [facility] [NON[facility]STAFF] - 1 Week Patient Instructions/Handouts: How to Stop Smoking (DC), Brief Psychotic Disorder (DC) Activity/Diet/Wound Care/Special Instructions: Activity and diet as tolerated. No guns or weapons in the home. Refrain from alcohol and street drugs not prescribed by your physician. Take all medications as prescribed, and attend all follow up appointments as scheduled. If in need of medication refills, please go to your primary care physician, or to your out patient psychiatric provider. If in crisis, please call , or go the nearest ER for an evaluation. Discharge Disposition: HOME SELF-CARE
[2019-05-02] MEDS: NICOTINE POLACRILEX 2 MG GUM BUCCAL PRN (10:16)
== END 2019-05-02 12:20 | disposition home or self-care (01) | DRG 885 ==
LOC: EC 18:13 → 3MHU 22:54
PROVIDERS: ADMIT Psychiatry & Neurology Psychiatry; ATTEND Psychiatry & Neurology Psychiatry
DX: F23 Brief psychotic disorder (principal); F17.210 Nicotine dependence, cigarettes, uncomplicated; F43.10 Post-traumatic stress disorder, unspecified; G31.9 Degenerative disease of nervous system, unspecified; R32 Unspecified urinary incontinence; F32.9 Major depressive disorder, single episode, unspecified; F41.9 Anxiety disorder, unspecified; Z87.820 Personal history of traumatic brain injury; Z91.018 Allergy to other foods
CPT/HCPCS: 36415; 70450; 71046; 80048; 80053; 80061; 80076; 80306; 81003; 82075; 82140; 82550; 82607; 82746; 83036; 84443; 85025; 86780; 95819; 96360; 99285

== ENCOUNTER 2019-05-16 04:40 | Inpatient (IN) | payer BC ==
--- NOTE | 2019-05-16 04:51 | ED ---
Psych HPI - General Chief Complaint: Psychiatric Symptoms Stated Complaint: mental health Time Seen by Provider: 05/16/19 04:50 Source: patient, family Mode of arrival: ambulatory - History of Present Illness Initial Comments: Joe is a 23-year-old gentleman with a history of severe psychiatric illness, patient was previously on an daily injections. During his previous admission refused them and was given pills. Patient was discharged from mental health unit 2 weeks ago and has been noncompliant with his pills. Family reports he's had increasingly bizarre behavior. The father reports that he's been talking about unicorn's and making statements that make absolutely no sense. This morning around 1 AM he called his stepfather and told him that he had been out walking and was cold. His stepfather found him walking carrying his lunch pail, he seemed to be disoriented and was very cold. At that time they decided to bring him back to the hospital for further valuation of his psychiatric illness. Upon evaluation patient denies any complaints. - Related Data Previous Rx's Medication Instructions Recorded Nicotine Polacrilex [Nicorette] 2 mg BUCCAL Q4HR PRN 14 Days gum 05/02/19 Paliperidone [Invega] 6 mg PO HS 28 Days tab.er.24 05/02/19 Allergies Allergy/AdvReac Type Severity Reaction Status Date / Time banana AdvReac Nausea & Verified 05/16/19 04:49 Vomiting grape AdvReac Nausea & Verified 05/16/19 04:49 Vomiting haloperidol [From Haldol] AdvReac Unknown Verified 05/16/19 05:58 tomato AdvReac Nausea & Verified 05/16/19 04:49 Vomiting Review of Systems ROS Statement: Those systems with pertinent positive or pertinent negative responses have been documented in the HPI. ROS Other: All systems not noted in ROS Statement are negative. Past Medical History Additional Past Medical History / Comment(s): Traumatic brain injury. Trach. History of Any Multi-Drug Resistant Organisms: None Reported Past Surgical History: No Surgical Hx Reported Additional Past Surgical History / Comment(s): trach placed and removed, Past Psychological History: Anxiety, Depression, PTSD Smoking Status: Heavy tobacco smoker Past Alcohol Use History: Unable to Obtain Past Drug Use History: Unable to Obtain General Exam - General Exam Comments Initial Comments: Physical Exam GENERAL: Patient is well-developed and well-nourished. Patient is nontoxic and well-hydrated HENT: Normocephalic, Atraumatic. EYES: PERRL, EOMI PULMONARY: Unlabored respirations. CARDIOVASCULAR: RRR Warm and well perfused extremities ABDOMEN: Non-distended SKIN: No rashes or bruising : Deferred NEUROLOGIC: Alert and oriented to self, somewhat unaware of location day or date Speech is pressured but there is no dysarthria or aphasia Normal gait MUSCULOSKELETAL: Moving all extremities with no apparent injury PSYCHIATRIC: Hallucinating Flight of ideas Appears distracted by internal stimuli Limitations: no limitations Course Vital Signs 05/16/19 04:43 Temperature 98.3 F Pulse Rate 76 Respiratory 18 Rate Blood Pressure 126/82 O2 Sat by Pulse 100 Oximetry Medical Decision Making - Medical Decision Making Patient presenting to the ER for psychiatric evaluation. Upon evaluation the patient appears to be acutely psychotic. He has rapid pressured speech with f light of ideas. When asked questions he answers very inappropriately. Patient uncertain of events of the evening or events leading up to hospitalization. At this time I do not feel patient is stable for discharge home, he will be evaluated by EPS and I will recommend admission to the hospital for further management. Patient was evaluated by EPS who agree the patient requires inpatient admission. Petition and certification were completed and patient will be admitted to inpatient psychiatry. - Lab Data Result diagrams: 05/16/19 05:23 05/16/19 05:23 Lab Results 05/16/19 05/16/19 05/16/19 Range/Units 05:23 05:23 05:23 WBC 10.7 H (3.8-10.6) k/uL RBC 5.67 (4.30-5.90) m/uL Hgb 15.7 (13.0-17.5) gm/dL Hct 47.9 (39.0-53.0) % MCV 84.4 (80.0-100.0) fL MCH 27.7 (25.0-35.0) pg MCHC 32.8 (31.0-37.0) g/dL RDW 12.8 (11.5-15.5) % Plt Count 238 (150-450) k/uL Neutrophils % 73 % Lymphocytes % 16 % Monocytes % 6 % Eosinophils % 3 % Basophils % 1 % Neutrophils # 7.8 H (1.3-7.7) k/uL Lymphocytes # 1.7 (1.0-4.8) k/uL Monocytes # 0.6 (0-1.0) k/uL Eosinophils # 0.3 (0-0.7) k/uL Basophils # 0.1 (0-0.2) k/uL Sodium 141 (137-145) mmol/L Potassium 3.9 (3.5-5.1) mmol/L Chloride 106 (98-107) mmol/L Carbon Dioxide 23 (22-30) mmol/L Anion Gap 12 mmol/L BUN 19 (9-20) mg/dL Creatinine 0.88 (0.66-1.25) mg/dL Est GFR (CKD-EPI)AfAm >90 (>60 ml/min/1.73 sqM) Est GFR (CKD-EPI)NonAf >90 (>60 ml/min/1.73 sqM) Glucose 95 (74-99) mg/dL Calcium 10.0 (8.4-10.2) mg/dL Total Bilirubin 0.7 (0.2-1.3) mg/dL AST 23 (17-59) U/L ALT 28 (21-72) U/L Alkaline Phosphatase 65 (38-126) U/L Total Protein 8.1 (6.3-8.2) g/dL Albumin 5.0 (3.5-5.0) g/dL Salicylates <1.0 mg/dL Urine Opiates Screen Not Detected (NotDetected) Ur Oxycodone Screen Not Detected (NotDetected) Urine Methadone Screen Not Detected (NotDetected) Ur Propoxyphene Screen Not Detected (NotDetected) Acetaminophen <10.0 ug/mL Ur Barbiturates Screen Not Detected (NotDetected) U Tricyclic Antidepress Not Detected (NotDetected) Ur Phencyclidine Scrn Not Detected (NotDetected) Ur Amphetamines Screen Not Detected (NotDetected) U Methamphetamines Scrn Not Detected (NotDetected) U Benzodiazepines Scrn Not Detected (NotDetected) Urine Cocaine Screen Not Detected (NotDetected) U Marijuana (THC) Screen Not Detected (NotDetected) Serum Alcohol <10 mg/dL Disposition Clinical Impression: Psychiatric disorder Disposition: ADMITTED IP TO THIS [facility] Condition: Serious Referrals: None,Stated [Primary Care Provider] - 1-2 days
[2019-05-16 05:32] LABS: Basophils # (A) 0.1 k/uL (0-0.2); Basophils % (A) 1 %; Eosinophils # (A) 0.3 k/uL (0-0.7); Eosinophils % (A) 3 %; HCT 47.9 % (39.0-53.0); HGB 15.7 gm/dL (13.0-17.5); Lymphocytes # (A) 1.7 k/uL (1.0-4.8); Lymphocytes % (A) 16 %; MCH 27.7 pg (25.0-35.0); MCHC 32.8 g/dL (31.0-37.0); MCV 84.4 fL (80.0-100.0); Mean Platelet Volume 7.5; Monocytes # (A) 0.6 k/uL (0-1.0); Monocytes % (A) 6 %; Neutrophils # (A) 7.8 k/uL (1.3-7.7); Neutrophils % (A) 73 %; Platelet Count 238 k/uL (150-450); RBC 5.67 m/uL (4.30-5.90); RDW 12.8 % (11.5-15.5); WBC 10.7 k/uL (3.8-10.6)
[2019-05-16 05:41] LABS: ALT 28 U/L (21-72); AST 23 U/L (17-59); Acetaminophen <10.0 ug/mL; African American GFR (CKD) >90 (>60 ml/min/1.73 sqM); Alcohol <10 mg/dL; Alkaline Phosphatase 65 U/L (38-126); Anion Gap 12 mmol/L; Blood Urea Nitrogen 19 mg/dL (9-20); Carbon Dioxide 23 mmol/L (22-30); Chloride 106 mmol/L (98-107); Glucose 95 mg/dL (74-99); Non-African American GFR(CKD) >90 (>60 ml/min/1.73 sqM); Potassium 3.9 mmol/L (3.5-5.1); Salicylate <1.0 mg/dL; Sodium 141 mmol/L (137-145); Total Bilirubin 0.7 mg/dL (0.2-1.3); Total Protein 8.1 g/dL (6.3-8.2)
[2019-05-16 05:44] LABS: Amphetamine Screen,Urine Not Detected (NotDetected); Barbiturate Screen,Urine Not Detected (NotDetected); Benzodiazepines Screen,Urine Not Detected (NotDetected); Cocaine Screen,Urine Not Detected (NotDetected); Methadone Screen, Urine Not Detected (NotDetected); Opiate Screen,Urine Not Detected (NotDetected); Oxycodone Screen, Urine Not Detected (NotDetected); Phencyclidine Screen,Urine Not Detected (NotDetected); Tricyclic Antidepressant,Urine Not Detected (NotDetected); Urn Cannabinoid Scrn Not Detected (NotDetected)
[2019-05-16] MEDS ORDERED: MAG HYDROX/AL HYDROX/SIMETH 30 ML CUP PO PRN (06:51)
[2019-05-16] MEDS ORDERED: ACETAMINOPHEN TAB 325 MG TAB PO PRN (06:56)
[2019-05-16] MEDS ORDERED: ZIPRASIDONE 20 MG VIAL IM PRN (06:56)
[2019-05-16 07:17] LABS: Appearance,Urine Clear (Clear); Bilirubin,Urine Negative (Negative); Blood,Urine Negative (Negative); Color,Urine Light Yellow; Glucose,Urine (UA) Negative (Negative); Ketones,Urine Negative (Negative); Leukocyte Esterase,Urine Negative (Negative); Nitrite,Urine Negative (Negative); Protein,Urine Negative (Negative); Specific Gravity,Urine 1.011 (1.001-1.035); Urobilinogen,Urine <2.0 mg/dL (<2.0)
[2019-05-16 08:22] LABS: Albumin 4.4 g/dL (3.5-5.0); Bilirubin, Delta 0.1 mg/dL (0.0-0.2); Bilirubin,Unconjugated 0.8 mg/dL (0.0-1.1); Total Bilirubin 0.9 mg/dL (0.2-1.3); Total Protein 7.2 g/dL (6.3-8.2)
[2019-05-16] MEDS ORDERED: HALOPERIDOL LACTATE 5 MG/ML 1 ML VIAL IM PRN (12:05)
[2019-05-16] MEDS: PALIPERIDONE 3 MG TAB.ER.24 PO SCH ×3 (12:13→22:05)
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
--- NOTE | 2019-05-16 16:55 | P.HPMEDMHU ---
History of Present Illness H&P Date: 05/16/19 Chief Complaint: consult for MHU HPI The patient is a 23-year-old male with a past with a history of traumatic brain injury was admitted involuntary via petition. Patient is noted to have bizarre bizarre, disorganized and tangential thoughts. The patient is a poor historian and appeared to have difficulty following and maintaining on this topic during my interview, the patient denied any chest pain shortness of breath or belly pain or any other somatic complaints. Prior to my interview the patient was fixated on a hallway painting and continued to talk about the painting throughout the interview. The patient would skip from topic to topic he denied any suicidal ideation was displaying thought blocking. (Review of the chart indicates the patient has no significant medical issues Review of Systems Pertinent positives per HPI all other review of systems was negative Past Medical History Additional Past Medical History / Comment(s): Traumatic brain injury. Trach. History of Any Multi-Drug Resistant Organisms: None Reported Past Surgical History: No Surgical Hx Reported Additional Past Surgical History / Comment(s): trach placed and removed, Smoking Status: Current every day smoker Medications and Allergies Home Medications Medication Instructions Recorded Confirmed Type Nicotine Polacrilex [Nicorette] 2 mg BUCCAL Q4HR PRN 14 Days gum 05/02/19 Rx Paliperidone [Invega] 6 mg PO HS 28 Days tab.er.24 05/02/19 Rx Allergies Allergy/AdvReac Type Severity Reaction Status Date / Time banana AdvReac Nausea & Verified 05/16/19 10:21 Vomiting grape AdvReac Nausea & Verified 05/16/19 10:21 Vomiting haloperidol [From Haldol] AdvReac Unknown Verified 05/16/19 10:21 tomato AdvReac Nausea & Verified 05/16/19 10:21 Vomiting Physical Exam Vitals: Vital Signs Temp Pulse Pulse Resp BP BP Pulse Ox 05/16/19 10:36 97.0 F L 67 118/72 05/16/19 07:09 97.0 F L 67 18 118/72 05/16/19 04:43 98.3 F 76 18 126/82 100 Intake and Output 05/16/19 05/16/19 05/16/19 06:59 14:59 22:59 Other: Weight 73.164 kg 72.9 kg Constitutional: No acute distress, conversant, pleasant Eyes: Anicteric sclerae, moist conjunctiva, no lid-lag, PERRLA ENMT: NC/AT,Oropharynx clear, no erythema, exudates Neck:Supple, FROM, no masses, or JVD, No carotid bruits; No thyromegaly Lungs: Clear to auscultation, Clear to percussion, Normal respiratory effort, no accessory muscle use Cardiovascular: Heart regular in rate and rhythm, No murmurs, gallops, or rubs no peripheral edema Abdominal: Soft Nontender, nom distended, no guarding, no rebound or rigidity, Normoactive bowel sounds No hepatomegaly, No splenomegaly, No palpable mass No abdominal wall hernia noted Skin: Normal temperature, tone, texture, turgor, No induration No subcutaneous nodules, No rash, lesions, No ulcers Extremities:No digital cyanosis No clubbing, Pedal pulses intact and symmetrica l Radial pulses intact and symmetrical Normal gait and station, No calf tenderness Psychiatric: Responding to internal stimuli disorganized thought tangential illogical with loose associations, limited affect poor insight Neuro: Muscles Strength 5/5 in all 4 extremities, Sensation to light touch grossly present throughout, Cranial nerves II-XII grossly intact. No focal sensory deficits Cranial Nerve Examination - Cranial Nerves Cranial Nerve II- Optic: Intact Cranial Nerve III- Oculomotor: Intact Cranial Nerve IV- Trochlear: Intact Cranial Nerve V- Trigeminal: Intact Cranial Nerve - Abducens: Intact Cranial Nerve VII- Facial: Intact Cranial Nerve VIII- Auditory: Intact Cranial Nerve IX- Glossopharyngeal: Intact Cranial Nerve X- Vagus: Intact Cranial Nerve XI- Accessory: Intact Cranial Nerve XII- Hypoglossal: Intact Results CBC & Chem 7: 05/16/19 05:23 05/16/19 05:23 Labs: Abnormal Lab Results - Last 24 Hours (Table) 05/16/19 Range/Units 05:23 WBC 10.7 H (3.8-10.6) k/uL Neutrophils # 7.8 H (1.3-7.7) k/uL Assessment and Plan Assessment: Assessment Acute psychosis History of traumatic brain injury The patient is admitted with acute psychosis to the mental health floor after being involuntarily petition by family members. We'll defer to psychiatry for treatment of ongoing psychosis and defer to their management with psychotropic medications along with cognitive behavioral therapy. Patient has no somatic complaints he is hemodynamically stable and his labs are otherwise unremarkable. His UDS is negative. We'll plan to sign off on the patient We Appreciate the opportunity to be involved in this patient's care for any further questions please not hesitate to contact the sound inpatient
[2019-05-16] MEDS: NICOTINE POLACRILEX 2 MG GUM BUCCAL PRN (17:13)
[2019-05-16] MEDS: LORazepam 2 MG/ML INJ IM PRN (18:34)
[2019-05-16] MEDS: flUPHENAZine 2.5 MG/ML (MDV) 10 ML VIAL IM PRN (18:34)
[2019-05-16] MEDS ORDERED: PALIPERIDONE 6 MG TAB.ER.24 PO SCH ×2 (21:00)
[2019-05-17] MEDS: PALIPERIDONE 3 MG TAB.ER.24 PO SCH ×2 (08:55→20:52)
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
[2019-05-17] MEDS: flUPHENAZine 2.5 MG/ML (MDV) 10 ML VIAL IM PRN ×2 (12:48→16:04)
[2019-05-17] MEDS: LORazepam 2 MG/ML INJ IM PRN ×2 (12:52→16:05)
[2019-05-17] MEDS ORDERED: LORazepam 2 MG/ML INJ IM STA (16:02)
[2019-05-17] MEDS ORDERED: flUPHENAZine 2.5 MG/ML (MDV) 10 ML VIAL IM ONE (16:02)
[2019-05-18] MEDS: LORazepam 1 MG TAB PO PRN ×2 (01:34→10:02)
[2019-05-18] MEDS: PALIPERIDONE 3 MG TAB.ER.24 PO SCH ×2 (09:08→21:33)
--- NOTE | 2019-05-18 10:12 | P.PN ---
Progress Note - Text Progress Note Date: 05/18/19 Interval History: Patient was seen wandering the hallways and was agreeable to speak to advertising copywriter efrem murrell patient turned to try to open the exit door in the back hallway and needed to be redirected to the office. Patient appeared to be confused today and continues to act bizarrely. Patient continues to speak illogically and inappropriately during conversation. Patient spoke about needing to see his "Azra" and states that "she is working right now". Patient did claim that he took the medications however is not able to describe how it is helping him. Patient continues to have poor insight and judgment. Patient received her Prolixin and Ativan PRN yesterday for inappropriate behavior. Patient offers no other complaints at this time he claims that he slept well last night. At this time patient denies any suicidal or homical ideations, intent or plan. Patient denies any auditory, visual hallucinations. Mental Status Exam: General Appearance: Patient appears to be stated age is alert, and attempts to cooperate. Patient appears to be responding to internal stimuli during the interview. Improving hygiene and grooming. Behavior: Patient is calmly seated without any agitated behavior. Patient is bizarre today. Speech: Patient's speech is fluent and nonpressured. Mood/Affect: Patient reports their mood is "fine", affect is congruent and blunted Suicidality/Homicidality: Patient denies having any suicidal or homicidal ideation intent or plan. Perceptions: Patient denies any auditory or visual hallucinations. Though content/process: Patient has disorganized thought process, is tangential/illogical with loose associations. Memory and concentration: AOX3, grossly intact for the purposes of this session. Judgment and insight: poor Assessment Psychosis unspecified Nicotine dependence Plan: -Patient is admitted under involuntary status to MHU for stabilization of psychiatric symptoms and safety. Patient signed medication consent and is placed in patient's chart. A second certification was completed by advertising copywriter and faxed to the court, awaiting deferral and court date. -Medications: Continue with Invega 3 mg twice a day for psychosis. Plan will be to put patient on long-acting injection prior to discharge. -When necessary Prolixin and Ativan for agitation/aggression. -NRT -Nicorette gum -SW on board for discharge planning.
[2019-05-18] MEDS: flUPHENAZine 2.5 MG/ML (MDV) 10 ML VIAL IM PRN (10:16)
[2019-05-18] MEDS ORDERED: flUPHENAZine 2.5 MG/ML (MDV) 10 ML VIAL IM STA (14:12)
[2019-05-18] MEDS ORDERED: flUPHENAZine 2.5 MG/ML (MDV) 10 ML VIAL IM ONE (17:40)
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
[2019-05-19] MEDS: flUPHENAZine 2.5 MG/ML (MDV) 10 ML VIAL IM PRN ×2 (06:37→15:51)
[2019-05-19] MEDS: PALIPERIDONE 3 MG TAB.ER.24 PO SCH (08:22)
[2019-05-19] MEDS ORDERED: LORazepam 2 MG/ML INJ ONE (08:29)
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
[2019-05-19] MEDS ORDERED: flUPHENAZine 2.5 MG/ML (MDV) 10 ML VIAL IM ONE (09:53)
[2019-05-19] MEDS ORDERED: LORazepam 2 MG/ML INJ IM ONE (09:54)
[2019-05-19 10:01] LABS: Basophils # (A) 0.1 k/uL (0-0.2); Basophils % (A) 2 %; Eosinophils # (A) 0.2 k/uL (0-0.7); Eosinophils % (A) 4 %; HCT 46.2 % (39.0-53.0); HGB 14.8 gm/dL (13.0-17.5); Lymphocytes # (A) 1.1 k/uL (1.0-4.8); Lymphocytes % (A) 21 %; MCH 27.4 pg (25.0-35.0); MCHC 32.1 g/dL (31.0-37.0); MCV 85.3 fL (80.0-100.0); Mean Platelet Volume 7.7; Monocytes # (A) 0.3 k/uL (0-1.0); Monocytes % (A) 6 %; Neutrophils # (A) 3.5 k/uL (1.3-7.7); Neutrophils % (A) 66 %; Platelet Count 187 k/uL (150-450); RBC 5.41 m/uL (4.30-5.90); RDW 12.7 % (11.5-15.5); WBC 5.3 k/uL (3.8-10.6)
[2019-05-19 10:13] LABS: African American GFR (CKD) >90 (>60 ml/min/1.73 sqM); Anion Gap 7 mmol/L; Blood Urea Nitrogen 14 mg/dL (9-20); Calcium 9.9 mg/dL (8.4-10.2); Carbon Dioxide 31 mmol/L (22-30); Chloride 104 mmol/L (98-107); Creatine Kinase 674 U/L (55-170); Glucose 55 mg/dL (74-99); Non-African American GFR(CKD) >90 (>60 ml/min/1.73 sqM); Potassium 5.1 mmol/L (3.5-5.1); Sodium 142 mmol/L (137-145)
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
[2019-05-19] MEDS ORDERED: diphenhydrAMINE 50 MG/ML 1 ML VIAL IM PRN (15:14)
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
[2019-05-19] MEDS: risperiDONE ODT 2 MG TAB PO SCH (21:45)
[2019-05-19] MEDS: VALPROIC ACID ORAL SOLN 250 MG/5 ML CUP PO SCH (21:45)
[2019-05-20] MEDS: risperiDONE ODT 2 MG TAB PO SCH ×2 (08:45→21:21)
[2019-05-20] MEDS ORDERED: OLANZapine 10 MG VIAL IM PRN (08:58)
[2019-05-20] MEDS: NICOTINE POLACRILEX 2 MG GUM BUCCAL PRN ×2 (09:21→16:37)
[2019-05-20] MEDS ORDERED: VALPROIC ACID ORAL SOLN 250 MG/5 ML CUP PO ONE (09:28)
--- NOTE | 2019-05-20 11:44 | P.PN ---
Progress Note - Text Progress Note Date: 05/20/19 Interval History: Patient was seen laying down in his bed and was agreeable to speak to chief underwriter. Patient continues to have one-to-one security for safety. Patient according to notes did not require any PRNs for agitation overnight and no seclusions/restraints. Patient appeared to be less confused today and spoke with the chief underwriter. Patient appeared to be alert and oriented 2 and thought that it was "October 1983". Patient did know who the current president was. Patient claims that he does not remember what took place yesterday however stated to chief underwriter that he would not be violent today. Patient was slow to respond at times however did recognize chief underwriter and gave chief underwriter handshake. Patient asked about discharge and talked about wanting to see "Armani". Patient was gazing around the room however was directable. Patient was able to follow some commands and appeared to be calm. Patient continues to be somewhat illogical at times and responding to internal stimuli. Patient did claim that he take the medications she was given. Patient continues to have poor insight and judgment. At this time patient denies any suicidal or homical ideations, intent or plan. Patient denies any auditory, visual hallucinations. Mental Status Exam: General Appearance: Patient appears to be stated age is alert, continues to appear confused and laying down in his bed. Poor hygiene and grooming. Behavior: Patient is calmly seated without any agitated behavior. More directable however is responding to internal stimuli. Speech: Patient's speech is slow to respond. Mood/Affect: Patient reports their mood is "fine", affect is congruent and blunted Suicidality/Homicidality: Patient denies having any suicidal or homicidal ideation intent or plan. Perceptions: Patient denies any auditory or visual hallucinations. Though content/process: Patient has improving disorganized thought process, is tangential/illogical Memory and concentration: AOX3, grossly intact for the purposes of this session. Judgment and insight: poor Assessment Psychosis unspecified Nicotine dependence Plan: -Patient is admitted under involuntary status to MHU for stabilization of psychiatric symptoms and safety. Patient signed medication consent and is placed in patient's chart. -Medications: Will continue with Risperdal M tab 2 mg twice a day. Plan will be to put patient on long-acting injection prior to discharge. -When necessary Zyprexa IM for agitation/aggression. -NRT - Nicorette gum -SW on board for discharge planning. Patient has deferral date set for -Sunday and court for next week. -Gi Tech spoke with patient's mother Malorie over the phone at [phone] and addressed concerns related to medications and treatment planning and agrees that patient should be on a long-acting injection. Mother asked to visit today however due to patient's impulsivity and behavior informed mother that she would be able to visit most likely tomorrow.
[2019-05-20] MEDS ORDERED: OLANZapine ODT 5 MG TAB PO ONE (11:45)
[2019-05-20] MEDS: VALPROIC ACID ORAL SOLN 250 MG/5 ML CUP PO SCH (21:21)
[2019-05-21] MEDS: risperiDONE ODT 2 MG TAB PO SCH (08:31)
[2019-05-21] MEDS ORDERED: ZIPRASIDONE 20 MG VIAL IM ONE (08:53)
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
[2019-05-21] MEDS: VALPROIC ACID ORAL SOLN 250 MG/5 ML CUP PO SCH ×2 (11:56→20:12)
[2019-05-21 17:13] LABS: Hepatitis B Surface Antigen Non-Reactive (Non-Reactive); Hepatitis C IgG Antibody Non-Reactive (Non-Reactive)
[2019-05-21] MEDS: risperiDONE ODT 1 MG TAB PO SCH (20:11)
[2019-05-21] MEDS: NICOTINE POLACRILEX 2 MG GUM BUCCAL PRN (20:17)
[2019-05-22] MEDS: NICOTINE POLACRILEX 2 MG GUM BUCCAL PRN ×4 (02:10→18:27)
[2019-05-22] MEDS: risperiDONE ODT 1 MG TAB PO SCH ×2 (07:37→21:08)
[2019-05-22] MEDS: VALPROIC ACID ORAL SOLN 250 MG/5 ML CUP PO SCH ×2 (07:37→22:09)
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
[2019-05-23] MEDS: risperiDONE ODT 1 MG TAB PO SCH (08:31)
[2019-05-23] MEDS: VALPROIC ACID ORAL SOLN 250 MG/5 ML CUP PO SCH ×2 (08:32→20:50)
[2019-05-23] MEDS: NICOTINE POLACRILEX 2 MG GUM BUCCAL PRN ×4 (09:14→20:51)
[2019-05-23] MEDS ORDERED: PALIPERIDONE IM 234 MG/1.5 ML SYG IM STA (11:24)
--- NOTE | 2019-05-23 11:36 | P.PN ---
Progress Note - Text Progress Note Date: 05/23/19 Interval History: Patient was seen today laying down in his bed and was agreeable to speak to wr iter in the office. Patient was more directable today and appeared to be cooperative. Patient claims that he feels "down" as he is learning that other people during group are talking about their discharge and that most people are leaving today and he is sad that he is not able to be discharged. Patient states that he did not take his medications after discharge during the last hospitalization as he feel he did not need it however now claims that "I understand I need the medications". Patient spoke about how the medications are helping him feel calmer and thinking clear. He claims that he is getting along with other people here on the unit and denies any aggression or hostility. Patient has marginal hygiene and grooming and has poor eye contact this morning and his thoughts are more clear and more goal oriented/logical. Patient states that he signed the deferral yesterday with the saw edge fuser circular claiming that he would be taking all the medications as prescribed. He also claims that he spoke with his mother who "isn't giving me any answers". Patient states that he slept ok last night approximately 9 hours however states that it was in good rest". At this time he denies any suicidal or homicidal ideations intent or plan. Patient denies any auditory, visual hallucinations. Mental Status Exam: General Appearance: Patient appears to be stated age is alert, improving hygiene and grooming. Patient appears to be more directable and more cooperative. Behavior: Patient is sitting on the chair however has poor eye contact. Speech: Normal rate and tone, hesitant at times. Mood/Affect: Patient reports their mood is "fine", affect is congruent and constricted Suicidality/Homicidality: Patient denies having any suicidal or homicidal ideation intent or plan. Perceptions: Patient denies any auditory or visual hallucinations. Though content/process: Patient is more organized today in thought process, is less tangential/illogical compared to yesterday. Memory and concentration: AOX3, grossly intact for the purposes of this session. Judgment and insight: poor/impulsive, improving mildly. Assessment Psychosis unspecified Nicotine dependence Plan: -Patient is admitted under involuntary status to MHU for stabilization of psychiatric symptoms and safety. Patient signed medication consent and is placed in patient's chart. -Medications: Patient was agreeable to take Invega Sustenna 234mg IM loading dose today. Will decrease Risperdal M tab 2 mg twice a day for psychosis. Will continue with Depakene to 500 mg twice a day for mood stabilization/agitation. If patient is more aggressive/agitated during the weekend, it would be advised to increase Risperdal back up to 3 mg twice a day -PRN Zyprexa IM for agitation/aggression. AVOID using benzodiazepines for aggression at this time due to potential exacerbation of disinhibition and possibly triggering delirium/confusion. -NRT - Nicorette gum -SW on board for discharge planning. Patient signed deferral yesterday. Corporate Safety Director will attempt to contact mother today over the phone. Likely discharge early next week.
[2019-05-23 13:54] VITALS: BMI 22.8
[2019-05-23] MEDS: risperiDONE ODT 2 MG TAB PO SCH (20:51)
[2019-05-24] MEDS: risperiDONE ODT 2 MG TAB PO SCH ×2 (08:12→20:16)
[2019-05-24] MEDS: VALPROIC ACID ORAL SOLN 250 MG/5 ML CUP PO SCH ×2 (08:14→20:17)
[2019-05-24] MEDS: NICOTINE POLACRILEX 2 MG GUM BUCCAL PRN ×4 (08:16→20:17)
[2019-05-24] MEDS ORDERED: MAGNESIUM HYDROXIDE 2,400 MG/10 ML CUP PO PRN (11:43)
--- NOTE | 2019-05-24 11:46 | P.PN ---
Progress Note - Text Progress Note Date: 05/24/19 Interval history: Patient seen in cross coverage today. He relays that overall his thinking is doing better. He relays now he is feeling more physical symptoms of anxiety. He describes that he does feel like his heart is racing at times, his pulse on vital signs most recently has been normal. Mental status exam: He is alert and cooperative with the interview. He is not showing any agitation. He describes his mood is improving. He feels like his thoughts are doing better but describes feeling some physical manifestations of anxiety. He does not verbalize any thoughts of harm to self or others. He does not verbalize any hallucinations. He is noted to throw once during the session. Plan: We'll maintain current psychotropic medication regimen. Continue to monitor for any medication side effects. We will add milk of magnesia when necessary this he does describe some constipation. Continue to cover this patient through the weekend.
[2019-05-25] MEDS: VALPROIC ACID ORAL SOLN 250 MG/5 ML CUP PO SCH ×2 (08:39→20:16)
[2019-05-25] MEDS: risperiDONE ODT 2 MG TAB PO SCH ×2 (08:39→20:15)
[2019-05-25] MEDS: NICOTINE POLACRILEX 2 MG GUM BUCCAL PRN ×5 (08:40→20:16)
--- NOTE | 2019-05-25 16:08 | P.PN ---
Progress Note - Text Progress Note Date: 05/25/19 Interval history: Patient seen in [facility] again today. He reports that he is feeling tired quite a bit. We did discuss this as a possible side effect that can improve as he further adjust to the medication. He also does describe at times feeling some anxiety and then some rapid heartbeat. His pulse has been normal looking at his vital signs. He also wonders about being able to take the oral pill of Depakote instead of the syrup as he does not like the way the syrup tastes. Mental status exam: He is alert and cooperative with the interview. He seems to describe his mood is doing okay. He has overall restricted affect. He does not show any agitation. His thought processes overall are organized. He denies any thoughts of harm to self or others and denies any hallucinations. Plan: We'll maintain psychotropic medications as current. Continue to monitor for any medication side effects monitor his ongoing response to treatment. He'll continue to address some of these concerns with his primary psychiatrist.
[2019-05-26] MEDS: VALPROIC ACID ORAL SOLN 250 MG/5 ML CUP PO SCH (08:51)
[2019-05-26] MEDS: risperiDONE ODT 2 MG TAB PO SCH (08:51)
--- NOTE | 2019-05-26 10:22 | P.PN ---
Progress Note - Text Progress Note Date: 05/26/19 Interval History: Patient was seen today laying down in his bed and was directable and agreeable to speak to marketing copywriter in the office. Patient appeared to be tending to cooperate however appear to be somewhat sedated closing his eyes at times during the interview. Patient states that he spoke with his mother over the weekend and claims that it went well and states "we were just catching up". He stated that his mother wanted to talk to marketing copywriter about his medications and possible discharge date. Patient states that she does feel some anxiety at times throughout the day and states that it may be related to his medications. Patient requested to be placed on oral Depakote if possible and to have his Risperdal decreased again. Patient spoke about how the medications are helping him feel calmer and thinking clear and patient has improving insight and judgment into his condition. He claims that he attempted to go to some groups however felt that he is not able to participate due to the sedation. Patient continues to have poor eye contact this morning however he is more goal oriented/logical today. Patient states that he would like to be discharged as soon as possible and was agreeable to have his second injection whenever it needed. Patient states that he slept ok last night approximately 8 hours. At this time he denies any suicidal or homicidal ideations intent or plan. Patient denies any auditory, visual hallucinations. Mental Status Exam: General Appearance: Patient appears to be stated age is alert, improving hygiene and grooming. Patient appears to be more directable and more cooperative. Behavior: Patient is sitting on the chair however has poor eye contact. Speech: Normal rate and tone, hesitant at times. Mood/Affect: Patient reports their mood is "good", affect is congruent and constricted Suicidality/Homicidality: Patient denies having any suicidal or homicidal ideation intent or plan. Perceptions: Patient denies any auditory or visual hallucinations. Though content/process: Patient is more organized today in thought process, is less tangential/illogical Memory and concentration: AOX3, grossly intact for the purposes of this session. Judgment and insight: improving mildly. Assessment Psychosis unspecified Nicotine dependence Plan: -Patient is admitted under involuntary status to MHU for stabilization of psychiatric symptoms and safety. Patient signed medication consent and is placed in patient's chart. -Medications: Patient received Invega Sustenna 234mg IM loading dose on 05/23/2019 and will be due for his next long-acting injection tomorrow. Will decrease Risperdal M tab 1 mg twice a day for psychosis. Will decrease Depakote to 750 mg daily at bedtime for mood stabilization/agitation. -PRN Zyprexa IM for agitation/aggression. We will AVOID using benzodiazepines for aggression at this time due to potential exacerbation of disinhibition and possibly triggering delirium/confusion. -NRT - Nicorette gum -SW on board for discharge planning. Patient signed deferral for court on 05/22/2019. Digital Performance Analyst will attempt to contact mother again today over the phone. Likely discharge on Sunday.
[2019-05-26] MEDS: NICOTINE POLACRILEX 2 MG GUM BUCCAL PRN ×2 (13:25→20:03)
[2019-05-26] MEDS: DIVALPROEX ER 250 MG TAB.ER.24H PO SCH (20:03)
[2019-05-26] MEDS: risperiDONE ODT 1 MG TAB PO SCH (20:03)
[2019-05-27] MEDS: risperiDONE ODT 1 MG TAB PO SCH (08:38)
[2019-05-27] MEDS ORDERED: PALIPERIDONE IM 156 MG/ML SYG IM ONE (09:00)
--- NOTE | 2019-05-27 10:19 | P.PN ---
Progress Note - Text Progress Note Date: 05/27/19 Interval History: Patient was seen today laying down in his bed and was directable and agreeable to speak to jingle writer in the office. Patient appeared to be less sedated today and more verbal during communication. He states that he feels less anxious today and describes having an improvement in the "palpitations". Patient is more goal oriented and logical in his thought process and more clear in his speech. Patient states that he received the Invega Sustenna earlier this morning and tolerated it well. He states that he understands more the importance of medication for him and was reflecting back on his hospitalization. Patient also claimed that he spoke with his mother and asked to jingle writer how the conversation went with his mother as well. Patient claims that his mood has improved along with his anxiety. When asked about patient taking part in group, patient states that he "tired of groups" and states that he is more focused now on being discharged and wanting to go home. Patient continues to have poor eye contact this morning and is having improved hygiene and grooming. Patient states that he slept well last night approximately 6-7 hours. At this time he denies any suicidal or homicidal ideations intent or plan. Patient denies any auditory, visual hallucinations. Mental Status Exam: General Appearance: Patient appears to be stated age is alert, improving hygiene and grooming. Patient appears to be more directable and more cooperative. Behavior: Patient is sitting on the chair however has poor eye contact. Speech: Normal rate and tone, hesitant at times. Mood/Affect: Patient reports their mood is "ok", affect is congruent with improved range. Suicidality/Homicidality: Patient denies having any suicidal or homicidal ideation intent or plan. Perceptions: Patient denies any auditory or visual hallucinations. Though content/process: Patient is more organized today and is goal oriented and logical. Memory and concentration: AOX3, grossly intact for the purposes of this session. Judgment and insight: improving mildly. Assessment Psychosis unspecified Nicotine dependence Plan: -Patient is admitted under involuntary status to MHU for stabilization of psychiatric symptoms and safety. Patient signed medication consent and is placed in patient's chart. -Medications: Patient received Invega Sustenna 234mg IM loading dose on 05/23/2019 and received the 156 mg IM dose on 05/27/2019. We will be due for 156mg IM monthly dose on 06/17/2019. Will decrease Risperdal to 0.5 mg nightly for psychosis. Will continue with Depakote to 750 mg daily at bedtime for mood stabilization/agitation. -PRN Zyprexa IM for agitation/aggression. -NRT - Nicorette gum -SW on board for discharge planning. Patient signed deferral for court on 05/22/2019. Kraft Mill Operator spoke with patient's mother over the phone yesterday and answered questions regarding care and medications and potential discharge planning. Likely discharge tomorrow.
[2019-05-27] MEDS: NICOTINE POLACRILEX 2 MG GUM BUCCAL PRN (20:02)
[2019-05-27] MEDS: DIVALPROEX ER 250 MG TAB.ER.24H PO SCH (20:02)
[2019-05-27] MEDS ORDERED: risperiDONE 0.5 MG TAB PO SCH ×2 (21:00)
[2019-05-28 06:44] VITALS: TEMP 98
[2019-05-28 08:33] VITALS: BP 136/60; PULSE 82; RESP 16
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
== END 2019-05-28 12:44 | disposition home or self-care (01) | DRG 885 ==
LOC: EC 04:40 → 3MHU 06:21
PROVIDERS: ADMIT Psychiatry & Neurology Psychiatry; ATTEND Psychiatry & Neurology Psychiatry
DX: F20.81 Schizophreniform disorder (principal); F43.10 Post-traumatic stress disorder, unspecified; F17.210 Nicotine dependence, cigarettes, uncomplicated; G31.9 Degenerative disease of nervous system, unspecified; Z78.1 Physical restraint status; Z79.899 Other long term (current) drug therapy; Z87.820 Personal history of traumatic brain injury; Z91.19 Patient's noncompliance with other medical treatment and regimen; Z88.8 Allergy status to other drugs, medicaments and biological substances; Z91.018 Allergy to other foods
CPT/HCPCS: 36415; 70450; 80048; 80053; 80061; 80076; 80306; 80320; 80329; 81003; 82075; 82550; 83520; 84443; 85025; 86701; 86704; 86803; 87340; 99285